=== PATIENT | female | born 1940 | race Caucasian/White ===

== ENCOUNTER 2018-02-06 21:55 | Emergency (ER) | payer OTHER, BC ==
--- NOTE | 2018-02-06 22:05 | PDOC ---
History of Present Illness - General History Source: Patient Exam Limitations: No Limitations <Mamadou Blanco I - Last Filed: 02/06/18 22:14> - General History Source: Patient Exam Limitations: No Limitations - History of Present Illness Initial Comments: 02/06/18 22:32 The patient is a 77 year old female, with a significant PMH of right breast cancer and hypercholesterolemia, who presents to the emergency department complaining of a cat bite that occurred this morning. The patient states her cat jumped on her bed around 3 am this morning and bit her left arm. The patient states left arm looked erythematous and swollen throughout the day, no relief with cipro. The patient reports her cat has never done this before. The patient denies any numbness and tingling. Denies any discharge or odor. PAST SURGICAL HISTORY: Right knee arthroscopy x2- 1980 FAMILY HISTORY: no pertinent history SOCIAL HISTORY: Former smoker (quit 1970s), drinks wine 1-2/day but denies recreational drug use. MEDICATIONS: reviewed ALLERGIES: As per nursing notes Adult ROS General: No fevers or chills, no weakness, no weight loss CardioVascular: No chest pain or shortness of breath Respiratory:No cough, or wheezing. Musculoskeletal: No joint or muscle pain or swelling Neurologic: No headache, vertigo, dizziness or loss of consciousness Psychiatric: nor depression Skin: +Scratches and erythema to the left arm Endocrine: no increased thirst or abnormal weight change Allergic: no skin or latex allergy All other systems reviewed and normal PE GENERAL: The patient is awake, alert, and fully oriented, in no acute distress. HEAD: Normal with no signs of trauma. EYES: Pupils equal, round and reactive to light, extraocular movements intact, sclera anicteric, conjunctiva clear. EXTREMITIES: Normal range of motion, no edema. NEUROLOGICAL: Normal speech, normal gait. PSYCH: Normal mood, normal affect. SKIN: +Several scratches to the dorsal left forearm. +Mild erythema & increase in warmth. <Paz Varghese - Last Filed: 02/06/18 22:34> - General Chief Complaint: Bite Stated Complaint: LA CAT BITE Time Seen by Provider: 02/06/18 21:57 Past History - Past Medical History Anemia: No Asthma: No Cancer: Yes (RIGHT BREAST) Cardiac Disorders: No CVA: No COPD: No CHF: No Dementia: No Diabetes: No GI Disorders: No Disorders: No HTN: No Hypercholesterolemia: Yes (ON LIPITOR) Liver Disease: No Seizures: No Thyroid Disease: No - Surgical History Abdominal Surgery: No Appendectomy: No Cardiac Surgery: No Cholecystectomy: No Lung Surgery: No Orthopedic Surgery: Yes (RIGHT KNEE ARTHROSCOPY X2 - AND 10/15) - Suicide/Smoking/Psychosocial Hx Smoking History: Former smoker Have you smoked in the past 12 months: No If you are a former smoker, when did you quit?: Hx Alcohol Use: Yes (1-2 WINE/DAY) Drug/Substance Use Hx: No Substance Use Type: Alcohol Hx Substance Use Treatment: No <Mamadou Blanco I - Last Filed: 02/06/18 22:14> <Paz Varghese - Last Filed: 02/06/18 22:34> - Past Medical History Allergies/Adverse Reactions: Allergies Allergy/AdvReac Type Severity Reaction Status Date / Time Sulfa (Sulfonamide Allergy Severe Swelling Verified 02/23/12 12:34 Antibiotics) [Sulfa(Sulfonamide Antibiotics)] Home Medications: Ambulatory Orders Atorvastatin Ca [Lipitor] 20 mg PO ASDIR 02/23/12 Amoxicillin/Potassium Clav [Augmentin 875-125 Tablet] 1 each PO BID #14 tablet 02/06/18 Arimidex - 02/06/18 Losartan Potassium 02/06/18 *Physical Exam - Vital Signs Last Vital Signs Temp Pulse Resp BP Pulse Ox 98.6 F 82 16 200/91 97 02/06/18 22:04 02/06/18 22:04 02/06/18 22:04 02/06/18 22:06 02/06/18 22:04 <Paz Varghese - Last Filed: 02/06/18 22:34> ED Treatment Course - Medications Given in the ED: ED Medications Discontinued Medications Generic Name Dose Route Start Last Admin Trade Name Freq PRN Reason Stop Dose Admin Amoxicillin/Clavulanate Potassium 1 tab 02/06/18 22:15 02/06/18 22:17 Augmentin - 875mg Tablet PO 02/06/18 22:16 1 tab ONCE ONE Administration <Paz Varghese - Last Filed: 02/06/18 22:34> *DC/Admit/Observation/Transfer - Discharge Dispostion Decision to Admit order: No <Mamadou Blanco I - Last Filed: 02/06/18 22:14> - Attestations Scribe Attestion: 02/06/18 22:34 Documentation prepared by Paz Varghese, acting as district medical examiner for Mamadou Blanco MD. <Paz Varghese - Last Filed: 02/06/18 22:34> Diagnosis at time of Disposition: Cat bite involving extremity - Discharge Dispostion Condition at time of disposition: Stable - Prescriptions Prescriptions: Amoxicillin/Potassium Clav [Augmentin 875-125 Tablet] 1 each PO BID #14 tablet - Referrals Referrals: Demarcus Toney [Primary Care Provider] - - Patient Instructions Printed Discharge Instructions: How to Care for a Domestic Animal Bite Additional Instructions: For the infection take Augmentin one tablet twice a day and is a strong dose of Augmentin so get a probiotic and some yogurt and make sure you take The probiotic as well as the yogurt to prevent diarrhea. The infection should be better in 48 hours. If it is worse in 24 hours or not better in 48 hours see her doctor or come back to the ER and she will need IV antibiotics Return to the emergency department immediately with ANY new, persistent or worsening symptoms. Continue any medications as previously prescribed by your physician. You should follow up with your primary doctor as soon as possible regarding today's emergency department visit. . Please make sure your doctor reviews the results of your emergency evaluation. Thank you for coming to the Emergency Department today for your care. It was a pleasure to see you today. Please note that your evaluation is INCOMPLETE until you follow-up with your doctor. - Post Discharge Activity
[2018-02-06 22:10] VITALS: BP 200/91; PULSE 82; TEMP 98.6; BMI 18.8
[2018-02-06] MEDS ORDERED: AMOX TR/POT CLAV 875MG/125MG TABLETS (FP) PO ONE (22:15)
[2018-02-06] MEDS ORDERED: AMOX TR/POT CLAV 875MG/125MG TABLETS (FP) ONE (22:16)
== END 2018-02-06 22:23 | disposition home or self-care (01) ==
LOC: FER 21:55
DX: S40.871A Other superficial bite of right upper arm, initial encounter (principal); W55.01XA Bitten by cat, initial encounter; Y93.84 Activity, sleeping; Y92.003 Bedroom of unspecified non-institutional (private) residence as the place of occurrence of the external cause; Z85.3 Personal history of malignant neoplasm of breast; E78.00 Pure hypercholesterolemia, unspecified
CPT/HCPCS: 99281-25

== ENCOUNTER 2018-02-08 15:55 | Emergency (ER) | payer OTHER, BC ==
--- NOTE | 2018-02-08 16:01 | PDOC ---
History of Present Illness - General Chief Complaint: Revisit,Wound Recheck Stated Complaint: WOUND CHECK FOR CAT BITE ON LEFT FOREARM Time Seen by Provider: 02/08/18 16:01 History Source: Patient Exam Limitations: No Limitations - History of Present Illness Initial Comments: Pt, with PMH of HTN, HLD, and R breast cancer, presents for a L forearm wound re -check after she was bitten by her cat early Thursday morning (02/06/2018). The pt came to the [place] ER the evening of 02/06, after she states that she "scared the cat and she woke up to the cat biting and scratching her arm". The pt was given 875 mg Augmentin BID x 7 days. The pt has been taking the antibiotics, but today she noticed there was white pustular discharge coming from the puncture site. While the pain and edema has improved, she noticed the pustular drainage and that the level of erythema has gone past the marker line she lavonne on her arm on Thursday. She denies fevers/chills, nausea/vomiting, SOB , syncope, abdominal pain, urinary symptoms, diarrhea/constipation, or other joint pain. 02/08/18 18:53 Past History - Travel Traveled outside of the country in the last 30 days: No Close contact w/someone who was outside of country & ill: No - Past Medical History Allergies/Adverse Reactions: Allergies Allergy/AdvReac Type Severity Reaction Status Date / Time Sulfa (Sulfonamide Allergy Severe Swelling Verified 02/08/18 15:57 Antibiotics) [Sulfa(Sulfonamide Antibiotics)] Home Medications: Ambulatory Orders Amoxicillin/Potassium Clav [Augmentin 875-125 Tablet] 1 each PO BID 02/08/18 Anastrozole [Arimidex -] 1 mg PO DAILY 02/08/18 Losartan Potassium 25 mg PO DAILY 02/08/18 Anemia: No Asthma: No Cancer: Yes (RIGHT BREAST) Cardiac Disorders: No CVA: No COPD: No CHF: No Dementia: No Diabetes: No GI Disorders: No Disorders: No HTN: No Hypercholesterolemia: Yes (ON LIPITOR) Liver Disease: No Seizures: No Thyroid Disease: No - Surgical History Abdominal Surgery: No Appendectomy: No Cardiac Surgery: No Cholecystectomy: No Lung Surgery: No Orthopedic Surgery: Yes (RIGHT KNEE ARTHROSCOPY X2 - AND 10/15) - Suicide/Smoking/Psychosocial Hx Smoking History: Former smoker Have you smoked in the past 12 months: No If you are a former smoker, when did you quit?: 1970'S Hx Alcohol Use: Yes (1-2 WINE/DAY) Drug/Substance Use Hx: No Substance Use Type: Alcohol Hx Substance Use Treatment: No Review of Systems - Review of Systems Able to Perform ROS?: Yes Is the patient limited Guatemalan proficient: No Constitutional: Yes: Weight Stable. No: Chills, Diaphoresis, Fever, Loss of Appetite HEENTM: No: Recent change in vision, Double Vision, Throat Pain, Throat Swelling , Difficulty Swallowing Respiratory: No: Cough, Orthopnea, Shortness of Breath Cardiac (ROS): No: Chest Pain, Edema, Irregular Heart Rate, Lightheadedness, Palpitations, Syncope, Chest Tightness ABD/GI: No: Abdominal Distended, Constipated, Diarrhea, Nausea, Poor Appetite, Poor Fluid Intake, Vomiting, Abdominal cramping : No: Burning, Dysuria, Frequency, Pain, Urgency Musculoskeletal: No: Back Pain, Joint Pain (no pain over affected forearm, elbow , or wrist.), Joint Swelling, Muscle Pain, Muscle Weakness Integumentary: Yes: Erythema (erythema of L forearm on dorsal and palmar side of forearm. erythema extends past original marker line. ). No: Bruising, Change in Color, Lesions, Lumps, Pruritus, Rash Neurological: No: Headache, Numbness, Paresthesia, Tingling, Weakness, Unsteady Gait, Ataxia, Dizziness Psychiatric: No: Sleep Pattern Change, Change in Appetite Endocrine: No: Increased Urine, Change in Weight Hematologic/Lymphatic: No: Anemia, Blood Clots, Easy Bleeding All Other Systems: Reviewed and Negative *Physical Exam - Physical Exam General Appearance: Yes: Nourished, Appropriately Dressed, Thin. No: Apparent Distress (Pt anxious. Erythema over L forearm. Vitals stable and pt can lie comfortably. ) HEENT: positive: EOMI, Normal ENT Inspection, Normal Voice, Symmetrical, Pharynx Normal, Hearing Grossly Normal. negative: Scleral Icterus (R), Scleral Icterus (L) Neck: positive: Trachea midline, Normal Thyroid, Supple. negative: Tender, Rigid, Lymphadenopathy (R), Lymphadenopathy (L) Respiratory/Chest: positive: Lungs Clear, Normal Breath Sounds. negative: Chest Tender, Respiratory Distress, Accessory Muscle Use, Wheezing Cardiovascular: positive: Regular Rhythm, Regular Rate, S1, S2. negative: Edema , JVD, Murmur Comments:: radial pulse +3 b/l 02/08/18 19:05 Gastrointestinal/Abdominal: positive: Normal Bowel Sounds, Flat, Soft. negative : Tender, Organomegaly, Pulsatile Mass, Guarding, Rebound, Tenderness Lymphatic: negative: Adenopathy, Tenderness Musculoskeletal: positive: Normal Inspection. negative: CVA Tenderness, Decreased Range of Motion, Muscle Spasm Extremity: positive: Normal Capillary Refill, Normal Range of Motion, Pelvis Stable, Erythema (erythema and warmth over L forearm with small area of white pustular drainage at puncture site. ). negative: Normal Inspection, Tender, Coldness, Cyanosis, Swelling Integumentary: positive: Dry, Warm, Erythema (erythema and warmth of L forearm on dorsal and palmar side of forearm. erythema extends past original marker line. ). negative: Normal Color, Clammy, Diaphoresis, Hives, Petechiae, Rash, Swelling, Ecchymosis, Bruising Neurologic: positive: insole filler II-XII NML intact, Fully Oriented, Alert, Normal Mood/ Affect, Normal Response, Motor Strength 5/5. negative: Numbness, Sensory Deficit (no numbness or tingling of affected arm. NVI. ) ED Treatment Course - LABORATORY CBC & Chemistry Diagram: 02/08/18 17:10 02/08/18 17:10 Medical Decision Making - Medical Decision Making Pt was seen at bedside. Also seen by Dr. Nance. Pt L forearm surrounding cat bite is warm and erythematous. Level of erythema is extending past prior line drawn with black marker. Pt refusing admission for inpatient antibiotics. Ordered CBC and CMP, and 1 dose 3 g IV unasyn and 1 g IV vancomycin. 02/08/18 16:24 Pt receiving antibiotics. CBC and CMP WNL. Will discharge to home with strict return precautions. Pt agreeable to plan. Will follow-up with PCP or return to ER if symptoms worsen. 02/08/18 18:52 *DC/Admit/Observation/Transfer Diagnosis at time of Disposition: Cat bite Qualifiers: Encounter type: subsequent encounter Qualified Code(s): W55.01XD - Bitten by cat, subsequent encounter - Discharge Dispostion Disposition: HOME Condition at time of disposition: Improved Decision to Admit order: No - Referrals Referrals: Demarcus Toney [Non Staff, Medical] - - Patient Instructions Printed Discharge Instructions: Animal Bites, DI for Wound Infection Additional Instructions: Continue taking her antibiotics as prescribed. Return for worsening redness fever increased amount of drainage from the wound or any concerns or signs of infection. He should return for repeat evaluation within 48 hours. He should also start to soak the arm in warm water twice daily to increase drainage and decreased infection. He can apply topical bacitracin over the wound or any antibiotic cream or labs are unremarkable today and normal. He was given a dose of IV antibiotics here in the emergency room - Post Discharge Activity
[2018-02-08 16:08] VITALS: BP 189/79; PULSE 78; TEMP 98.7; BMI 18.8
[2018-02-08] MEDS ORDERED: AMPICILLIN NA/SULBACTAM NA 3 GM in SODIUM CHLORIDE 100 ML IVPB ONE (16:22)
[2018-02-08] MEDS ORDERED: VANCOMYCIN 1,000 MG in DEXTROSE 5%-WATER - 250 ML IVPB ONE (16:36)
--- NOTE | 2018-02-08 17:07 | PDOC ---
Attending Attestation - Resident Resident Name: ArronGenevieve - ED Attending Attestation I have performed the following: I have examined & evaluated the patient, The case was reviewed & discussed with the resident, I agree w/resident's findings & plan, Exceptions are as noted - HPI HPI: 02/08/18 17:04 77-year-old female here for follow-up evaluation of a left forearm cat bite. Patient was started on Augmentin has been taking as prescribed overall feels that the swelling and redness has improved however she noted some yellow discharge coming from the puncture wound in her left forearm no fever no chills no pain no streaking no other current complaints - Physicial Exam PE: 02/08/18 17:05 Awake alert no acute distress cardiac exam is regular without any murmurs rubs or gallops abdomen is soft and nontender lungs are clear bilaterally. Skin: Left forearm is noted for mild E erythema and redness over the dorsum limited to the mid forearm distally to the wrist. No pain with passive range of motion of the hand or fingers no swelling appreciated no warmth there is a small 2 mm puncture wound on the dorsum of the forearm there is small purulence expressible no fluctuance and no induration surrounding distally the patient is neurovascularly intact with 2+ median and ulnar pulses - Medical Decision Making 02/08/18 17:06 Status post Bite left forearm. Overall improving with Augmentin and will give a dose of IV antibiotics here in same basic blood work to rule out signs of infection overall seems to be improving therefore likely DC home with antibiotics for close follow-up within 48 hours
[2018-02-08] MEDS ORDERED: AMPICILLIN NA/SULBACTAM NA 3 GM VIAL ONE ×2 (17:14→17:16)
[2018-02-08] MEDS ORDERED: VANCOMYCIN 1,000 MG VIAL (RESTRICTED TO ID ONLY) ONE (17:14)
[2018-02-08 18:21] LABS: ALBUMIN 4.1 g/dl (3.5-5.0); ALK PHOS 43 U/L (32-92); ANION GAP 8 (8-16); BILIRUBIN,TOTAL 0.8 mg/dl (0.2-1.0); BLOOD UREA NITROGEN 15 mg/dl (7-18); CALCIUM 9.8 mg/dl (8.4-10.2); CHLORIDE 102 mmol/L (98-107); CO2 27 mmol/L (22-28); CREATININE 0.7 mg/dl (0.6-1.3); GLUCOSE,RANDOM 94 mg/dl (74-106); POTASSIUM 3.6 mmol/L (3.5-5.1); SGOT/AST 25 U/L (10-42); SGPT/ALT 19 U/L (10-40); SODIUM 137 mmol/L (136-145); TOT PROT 6.8 g/dl (6.4-8.3)
[2018-02-08 18:24] LABS: HEMATOCRIT 37.6 % (32.4-45.2); HEMOGLOBIN 12.7 GM/dl (10.7-15.3); MCH 32.4 pg (25.7-33.7); MCHC 33.8 g/dl (32.0-36.0); MEAN CELL VOLUME 95.8 fl (80-96); MEAN PLT VOLUME 9.3 fl (7.5-11.1); PLATELET COUNT 225 K/MM3 (134-434); RBC 3.92 M/mm3 (3.60-5.2); RDW 12.6 % (11.6-15.6); WHITE BLOOD COUNT 6.5 K/mm3 (4.0-10.8)
== END 2018-02-08 19:29 | disposition home or self-care (01) ==
LOC: FER 15:55
DX: W55.01XD Bitten by cat, subsequent encounter (principal); Y93.9 Activity, unspecified
CPT/HCPCS: 36415; 80053; 85027; 99281-25

== ENCOUNTER 2018-12-18 21:21 | Emergency (ER) | payer OTHER, BC ==
[2018-12-18 21:43] VITALS: BP 158/90; PULSE 82; TEMP 98.2; BMI 19.5
[2018-12-18 22:11] LABS: EPITHELIAL CELLS FEW /hpf
--- NOTE | 2018-12-19 02:33 | PDOC ---
Documentation entered by Paz Varghese SCRIBE, acting as scribe for Maria Montes De Oca MD. Maria Montes De Oca MD: This documentation has been prepared by the mabeleAbimael Aiswarya, SCRIBE, under my direction and personally reviewed by me in its entirety. I confirm that the documentation accurately reflects all work, treatment, procedures, and medical decision making performed by me. History of Present Illness - General Chief Complaint: Pain Stated Complaint: RIGHT RIB PAIN Time Seen by Provider: 12/18/18 21:23 History Source: Patient Exam Limitations: No Limitations - History of Present Illness Initial Comments: 12/18/18 22:17 The patient is a 78 year old female, with a significant PMH of right breast cancer and HLD ( on lipitor) who presents to the emergency department for evaluation of rib pain that began last night. The patient states she went rock climbing yesterday when she twisted her body and felt a sudden onset of pain to the right upper rib cage. The patient state pain is exacerbated with movement or getting up and alleviated by lying down. The patient also mentions she had a UTI and was prescribed Cipro for 7 days but still endorses associated symptoms of urinary frequency, burning and discomfort. The patient also notes ecchymosis and mild pain to the tip of her right 3rd digit. She states she forgot her reading glasses and jammed her finger into a step. The patient denies chest pain, shortness of breath, headache and dizziness. Denies any back pain, numbness or tingling. Denies fever, chills, nausea, vomit, diarrhea and constipation.Denies dysuria and hematuria. Allergies: NKDA Past surgical history:Right knee arthroscopy x2 1979 and 10/15 Social history: Former smoker (quit in ) drinks 1-2 glasses of wine per day but denies use of recreational drug PCP: Demarcus Toney Past History - Past Medical History Allergies/Adverse Reactions: Allergies Allergy/AdvReac Type Severity Reaction Status Date / Time Sulfa (Sulfonamide Allergy Severe Swelling Verified 12/18/18 21:33 Antibiotics) [Sulfa(Sulfonamide Antibiotics)] Home Medications: Ambulatory Orders Anastrozole [Arimidex -] 1 mg PO DAILY 02/08/18 Losartan Potassium 25 mg PO DAILY 02/08/18 Atorvastatin Ca [Lipitor] 20 mg PO DAILY 12/18/18 Ciprofloxacin [Cipro (Restricted To Id)] 500 mg PO DAILY 12/18/18 Anemia: No Asthma: No Cancer: Yes (RIGHT BREAST) Cardiac Disorders: No CVA: No COPD: No CHF: No Dementia: No Diabetes: No GI Disorders: No Disorders: No HTN: No Hypercholesterolemia: Yes (ON LIPITOR) Liver Disease: No Seizures: No Thyroid Disease: No - Surgical History Abdominal Surgery: No Appendectomy: No Cardiac Surgery: No Cholecystectomy: No Lung Surgery: No Orthopedic Surgery: Yes (RIGHT KNEE ARTHROSCOPY X2 - AND 10/15) - Suicide/Smoking/Psychosocial Hx Smoking History: Former smoker Have you smoked in the past 12 months: No If you are a former smoker, when did you quit?: Hx Alcohol Use: Yes (1-2 WINE/DAY) Drug/Substance Use Hx: No Substance Use Type: Alcohol Hx Substance Use Treatment: No Review of Systems - Review of Systems Able to Perform ROS?: Yes Comments:: 12/18/18 22:17 GENERAL/CONSTITUTIONAL: No fever or chills. No weakness. HEAD, EYES, EARS, NOSE AND THROAT: No change in vision. No ear pain or discharge. No sore throat. CARDIOVASCULAR: No chest pain or shortness of breath. RESPIRATORY: No cough, wheezing, or hemoptysis. GASTROINTESTINAL: No nausea, vomiting, diarrhea or constipation. GENITOURINARY: No dysuria, frequency, or change in urination. MUSCULOSKELETAL: +posterior right side rib pain . SKIN: +right middle finger ecchymosis NEUROLOGIC: No headache, vertigo, loss of consciousness, or change in strength/ sensation. ENDOCRINE: No increased thirst. No abnormal weight change. HEMATOLOGIC/LYMPHATIC: No anemia, easy bleeding, or history of blood clots. ALLERGIC/IMMUNOLOGIC: No hives or skin allergy. *Physical Exam - Vital Signs Last Vital Signs Temp Pulse Resp BP Pulse Ox 98.2 F 82 16 158/90 97 12/18/18 21:22 12/18/18 21:22 12/18/18 21:22 12/18/18 21:22 12/18/18 21:22 - Physical Exam Comments: 12/18/18 22:18 GENERAL: Awake, alert, and fully oriented, in no acute distress HEAD: No signs of trauma NECK: Normal ROM, supple, no lymphadenopathy, JVD, or masses LUNGS: Breath sounds equal, clear to auscultation bilaterally. No wheezes, and no crackles CHEST WALL: +tenderness on palpation of the 4/5 rib in the posterior axillary line. No crepitus, step off or any other tenderness palpated. HEART: Regular rate and rhythm, normal S1 and S2, no murmurs, rubs or gallops ABDOMEN: Soft, nontender, normoactive bowel sounds. No guarding, no rebound. No masses EXTREMITIES: +moderately edematous ecchymosis distal to the phalanx of the middle finger. Mild generalized tenderness. Flexion and extension of the DIP joint. No deformity. NEUROLOGICAL: Cranial nerves II through XII grossly intact. Normal speech. SKIN: Warm, Dry, normal turgor, no rashes or lesions noted. ED Treatment Course - ADDITIONAL ORDERS Additional order review: Laboratory Results 12/18/18 21:45 Urine Color Yellow Urine Appearance Clear Urine pH 5.0 Urine Protein Negative Urine Glucose (UA) Negative Urine Ketones Trace Urine Blood Negative Urine Nitrite Negative Urine Bilirubin Negative Urine Urobilinogen 0.2 Ur Leukocyte Esterase Trace H Urine RBC No Result Required. Urine WBC 2-5 Ur Transition Epith Cell Few - RADIOLOGY Radiology Studies Ordered: Category Date Time Status FINGER(S) RIGHT [RAD] Stat Radiology 12/18/18 21:59 Ordered RIBS RIGHT SIDE [RAD] Stat Radiology 12/18/18 22:01 Ordered Medical Decision Making - Medical Decision Making As noted above, this 78-year-old woman presents with a history of right chest wall pain for the last day. Patient was climbing a rock wall when she first felt pain; this occurred immediately after she twisted her torso. She strongly denies falling or impacting the area. Pain is worsened with movement and deep breathing. She denies shortness of breath or cough. She also has a nontender/ nonpainful, ecchymotic distal right third finger which she injured yesterday when she accidentally impacted finger against a step. She has no new limitation of flexion or extension in the DIP joint of that finger. Finally, the patient also has very mild persistent dysuria after 1 week course of antibiotics for UTI. Exam is noted. Right rib series/right third finger and urinalysis ordered. Preliminary x-ray interpretation by me: Rib series- No evidence of fracture dislocation of rib. 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 Microscopic exam reveals 0-2 WBCs and 1+ epi, otherwise normal Results discussed with the patient. Because she has persistent mild symptoms, urine culture and sensitivity will be sent to evaluate for UTI Patient should follow-up with her orthopedic group ( group) if she has persistent pain/bruising/swelling in the right third finger She should return to the ER if she has severe chest pain/cough/shortness of breath/fever, otherwise she should follow-up with her general medical doctor within the next 5-7 days *DC/Admit/Observation/Transfer Diagnosis at time of Disposition: Dysuria Chest wall muscle strain Qualifiers: Encounter type: initial encounter Qualified Code(s): S29.011A - Strain of muscle and tendon of front wall of thorax, initial encounter Finger contusion Qualifiers: Encounter type: initial encounter Finger: middle finger Damage to nail status: without damage Laterality: right Qualified Code(s): S60.031A - Contusion of right middle finger without damage to nail, initial encounter - Discharge Dispostion Disposition: HOME Condition at time of disposition: Stable - Referrals Referrals: Demarcus Toney [Primary Care Provider] - - Patient Instructions Printed Discharge Instructions: DI for Rib Contusion Additional Instructions: Avoid strenuous upper body activity for the next week Ibuprofen/naproxen/acetaminophen as needed for pain Continue to drink plenty of water Follow-up with /Dr. Rogers if swelling/bruising of finger persists Follow-up with your general doctor within the next 5-7 days, especially if you continue to have bladder discomfort - Post Discharge Activity
== END 2018-12-18 22:55 | disposition home or self-care (01) ==
LOC: FER 21:21
DX: S60.031A Contusion of right middle finger without damage to nail, initial encounter (principal); R30.0 Dysuria; S29.011A Strain of muscle and tendon of front wall of thorax, initial encounter; X58.XXXA Exposure to other specified factors, initial encounter; Y93.89 Activity, other specified; Y92.89 Other specified places as the place of occurrence of the external cause
CPT/HCPCS: 71101-TC-RT-FY; 73140-TC-RT-FY; 81003; 81015; 87086; 99283-25

== ENCOUNTER 2019-08-01 16:24 | Emergency (ER) | payer OTHER, BC ==
[2019-08-01 16:37] VITALS: BP 162/84; PULSE 84; TEMP 98.1; BMI 18.0
[2019-08-01 17:38] LABS: BASO % 0.5 % (0-2.0); EOS % 1.3 % (0-4.5); HEMATOCRIT 34.2 % (32.4-45.2); HEMOGLOBIN 11.7 GM/dl (10.7-15.3); LYMPH % 22.8 % (8-40); MCH 32.4 pg (25.7-33.7); MCHC 34.3 g/dl (32.0-36.0); MEAN CELL VOLUME 94.7 fl (80-96); MEAN PLT VOLUME 8.1 fl (7.5-11.1); MONO % 8.4 % (3.8-10.2); PLATELET COUNT 219 K/MM3 (134-434); RBC 3.61 M/mm3 (3.60-5.2); RDW 12.9 % (11.6-15.6); WHITE BLOOD COUNT 5.9 K/mm3 (4.0-10.8)
[2019-08-01 17:51] LABS: ALBUMIN 3.9 g/dl (3.4-5.0); BILIRUBIN,TOTAL 0.6 mg/dl (0.2-1); CALCIUM 9.3 mg/dl (8.5-10); CREATININE 0.7 mg/dl (0.55-1.3); TOT PROT 6.2 g/dl (6.4-8.2)
[2019-08-01 17:58] LABS: EPITHELIAL CELLS RARE /hpf
[2019-08-01] MEDS ORDERED: ACETAMINOPHEN 1000 MG/100 ML VIAL (NON FORMULARY) IVPB ONE (18:02)
[2019-08-01] MEDS ORDERED: PHENAZOPYRIDINE HCL 100 MG TABLET (FP) PO ONE (18:02)
[2019-08-01] MEDS ORDERED: ACETAMINOPHEN INJECTION 100 ML IVPB ONE (18:04)
[2019-08-01] MEDS ORDERED: PHENAZOPYRIDINE HCL 100 MG TABLET (FP) ONE (18:04)
[2019-08-01] MEDS ORDERED: CEFTRIAXONE 1 GM in DEXTROSE 5%-WATER - 50 ML IVPB ONE (18:16)
[2019-08-01] MEDS ORDERED: oxyCODONE HCL 5 MG TABLET PO ONE (18:16)
[2019-08-01] MEDS ORDERED: oxyCODONE HCL 5 MG TABLET ONE (18:21)
[2019-08-01] MEDS ORDERED: cefTRIAXone SODIUM 1 GM VIAL ONE (18:21)
--- NOTE | 2019-08-01 19:04 | PDOC ---
Documentation entered by Radha Alberto SCRIBE, acting as scribe for Agustín Medel MD. Agustín Medel MD: This documentation has been prepared by the Dolly vargas Nirvannie, SCRIBE, under my direction and personally reviewed by me in its entirety. I confirm that the documentation accurately reflects all work, treatment, procedures, and medical decision making performed by me. History of Present Illness - General Chief Complaint: Pain Stated Complaint: LLQ PAIN and ANXIETY ATTACK Time Seen by Provider: 08/01/19 16:34 History Source: Patient Exam Limitations: No Limitations - History of Present Illness Initial Comments: 08/01/19 18:58 The patient is a 78 year old female, with a significant past medical history of right breast cancer (s/p radiation 12), anxiety, and hld, who presents to the emergency department with 1 day of acute on chronic left suprapubic pain. As per patient, she had been worked up for the past 7 months by a multitude of physicians for left pelvic, suprapubic pain including x-rays, MRIs, and CT scans. She describes her pain as a dull, achy pain that progressively worsened to a sharp, stabbing pain normally occurring at 5pm at night but, today occurred upon awakening. She notes associated urinary hesitancy and dysuria at the end of her stream which has been occurring for the past 7 months. She endorses taking Pyridium, without relief prompting her arrival to the ED. While in the ED, patient endorses she is increasingly anxious secondary to pain. She denies recent fevers, chills, headache or dizziness. She denies recent nausea, vomiting, diarrhea or constipation. She denies recent chest pain or shortness of breath. Allergies: Sulfa Past surgical history: Right knee arthroscopy x2 1979 and 10/15 Social history: Former smoker (quit in ) drinks 1-2 glasses of wine per day but denies use of recreational drug usage. Primary Care Physician: Demarcus Feldman Past History - Past Medical History Allergies/Adverse Reactions: Allergies Allergy/AdvReac Type Severity Reaction Status Date / Time Sulfa (Sulfonamide Allergy Severe Swelling Verified 08/01/19 16:26 Antibiotics) [Sulfa(Sulfonamide Antibiotics)] Home Medications: Ambulatory Orders Losartan Potassium 25 mg PO BID 02/08/18 Atorvastatin Ca [Lipitor] 20 mg PO DAILY 12/18/18 Cyclobenzaprine HCl [Flexeril -] 5 mg PO TID 08/01/19 Diazepam [Valium] 5 mg PO PRN PRN 08/01/19 Eszopiclone [Lunesta] 53 mg PO PRN PRN 08/01/19 Nortriptyline HCl [Pamelor -] 25 mg PO DAILY 08/01/19 Oxybutynin Chloride [Oxybutynin Chloride ER] 5 mg PO DAILY 08/01/19 Oxycodone HCl/Acetaminophen [Oxycodone-Acetaminophen 5-325] 1 tab PO PRN PRN Anemia: No Asthma: No Cancer: Yes (RIGHT BREAST) Cardiac Disorders: No CVA: No COPD: No CHF: No Dementia: No Diabetes: No GI Disorders: No Disorders: No HTN: Yes Hypercholesterolemia: Yes (ON LIPITOR) Liver Disease: No Seizures: No Thyroid Disease: No - Surgical History Abdominal Surgery: No Appendectomy: No Cardiac Surgery: No Cholecystectomy: No Lung Surgery: No Orthopedic Surgery: Yes (RIGHT KNEE ARTHROSCOPY X2 - AND 10/15) - Psycho Social/Smoking Cessation Hx Smoking History: Former smoker Have you smoked in the past 12 months: No If you are a former smoker, when did you quit?: Information on smoking cessation initiated: No Hx Alcohol Use: Yes (1-2 WINE/DAY) Drug/Substance Use Hx: No Substance Use Type: Alcohol Hx Substance Use Treatment: No Review of Systems - Review of Systems Able to Perform ROS?: Yes Comments:: 08/01/19 18:58 CONSTITUTIONAL: No reported: Fever, Chills, Diaphoresis, Generalized Weakness, Malaise, Loss of Appetite HEENT: No reported: Rhinorrhea, Nasal Congestion, Throat Pain, Throat Swelling, Difficulty Swallowing, Mouth Swelling, Ear Pain, Eye Pain, Visual Changes CARDIOVASCULAR: No reported: Chest Pain, Syncope, Palpitations, Irregular Heart Rate, Lightheadedness, Peripheral Edema RESPIRATORY: No reported: Cough, Shortness of Breath, SOB with Exertion, Orthopnea, Wheezing , Stridor, Hemoptysis GASTROINTESTINAL: No reported: Abdominal Distension, Nausea, Vomiting, Diarrhea, Constipation, Melena, Hematochezia GENITOURINARY: Present: Right suprapubic pain, hesitancy, dysuria. No reported: Frequency, Urgency, Flank Pain MUSCULOSKELETAL: No reported: Myalgia, Arthralgia, Joint Swelling, Back pain, Neck Pain SKIN: No reported: Rash, Itching, Pallor HEMEATOLOGIC/IMMUNOLOGIC: No reported: Easy Bleeding, Easy Bruising, Lymphadenopathy, Frequent infections ENDOCRINE: No reported: Unexplained Weight Gain, Unexplained Weight Loss, Heat Intolerance , Cold Intolerance NEUROLOGIC: No reported: Headache, Focal Weakness, Paresthesias, Vertigo, Lightheadedness, Unsteady Gait, Seizure, Mental Status Changes, Incontinence PSYCHIATRIC: No reported: Anxiety, Depression All Other Systems: Reviewed and Negative *Physical Exam - Vital Signs Last Vital Signs Temp Pulse Resp BP Pulse Ox 98.1 F 84 18 162/84 98 08/01/19 16:25 08/01/19 16:25 08/01/19 16:25 08/01/19 16:25 08/01/19 16:25 - Physical Exam 08/01/19 18:18 GENERAL: The patient is awake, alert, and fully oriented, uncomfortable appearing HEAD: Normocephalic, atraumatic. EYES: extraocular movements intact, sclera anicteric, conjunctiva clear. ENT: Normal voice, Moist mucous membranes. NECK: Normal range of motion, supple LUNGS: Breath sounds equal, clear to auscultation bilaterally. No wheezes, no rhonchi, no rales. HEART: Regular rate and rhythm, normal S1 and S2 without murmur, rub or gallop. ABDOMEN: moderate suprapubic tenderness, no rebound/guarding, no cva tenderness EXTREMITIES: Normal range of motion, no edema. NEUROLOGICAL: No facial assymetry, Normal speech, PSYCH: Normal mood, normal affect. SKIN: Warm, Dry, normal turgor, ED Treatment Course - LABORATORY CBC & Chemistry Diagram: 08/01/19 17:15 08/01/19 17:15 - ADDITIONAL ORDERS Additional order review: Laboratory Results 08/01/19 08/01/19 17:15 17:15 Sodium 138 Potassium 4.0 Chloride 105 Carbon Dioxide 27 Anion Gap 6 L BUN 22.0 H Creatinine 0.7 Est GFR (CKD-EPI)AfAm 96.86 Est GFR (CKD-EPI)NonAf 83.57 Random Glucose 90 Calcium 9.3 Total Bilirubin 0.6 AST 21 ALT 24 Alkaline Phosphatase 40 L Total Protein 6.2 L Albumin 3.9 Urine Color Yellow Urine Appearance Clear Urine pH 5.0 Urine Protein Negative Urine Glucose (UA) Negative Urine Ketones Trace Urine Blood Negative Urine Nitrite Positive H Urine Bilirubin Negative Urine Urobilinogen 0.2 Ur Leukocyte Esterase 2+ Urine RBC 0-2 Urine WBC 40-60 Ur Transition Epith Cell Rare Urine Bacteria Moderate 08/01/19 17:15 RBC 3.61 MCV 94.7 MCHC 34.3 RDW 12.9 MPV 8.1 Neutrophils % 67.0 Lymphocytes % 22.8 Monocytes % 8.4 Eosinophils % 1.3 Basophils % 0.5 Medical Decision Making - Medical Decision Making 08/01/19 17:59 78y F hx of breast ca sp radiation therapy, perihpheral neuropathy presents with several months of intermittent LLQ pain around 5pm that gradually worsens. Pt has had multiple imaging modalities and specialist visits without an clear etiology. Pt notes the pain is deep aching pain sharp pain that usually worsens in the evenings around 5pm, but today, the pain was present since she woke up and has been worsening since around 1pm. deneis any vaginal bleednig/discharge , urinary or bowel incontinence, dysparunia. On exam the patient's abdomen is soft nontender there is mild suprapubic pain. There is no CVA tenderness rebound or guarding. Differential for the patient's symptoms includes possible UTI, cystitis, consider worsening of her chronic pain. Will obtain blood work, urine, will reassess 08/01/19 18:43 The patient's UA is noted for nitrite positive urine consistent with UTI. Patient has no cultures on file, will treat the patient with ceftriaxone/Keflex Patient is feeling better requesting to go home We will have the patient follow-up with her PMD, return precautions were discussed Discharge - Discharge Information Problems reviewed: Yes Clinical Impression/Diagnosis: Urinary tract infection Qualifiers: Urinary tract infection type: acute cystitis Hematuria presence: without hematuria Qualified Code(s): N30.00 - Acute cystitis without hematuria Condition: Fair Disposition: HOME - Admission No - Follow up/Referral Referrals: Demarcus Toney [Primary Care Provider] - - Patient Discharge Instructions Patient Printed Discharge Instructions: DI for Urinary Tract Infection (UTI) Additional Instructions: Return to the emergency department immediately with ANY new, persistent or worsening symptoms including worsening abdominal pain, fevers, inability to tolerate oral intake, chest pain, shortness of breath or any other concerns. Stay well hydrated. You MUST call and follow up with your doctor tomorrow. Your emergency department visit is not complete without a followup with your doctor for reevaluation. Please make sure your doctor reviews the results of your emergency evaluation. Print Language: HUNGARIAN - Post Discharge Activity
== END 2019-08-01 19:14 | disposition home or self-care (01) ==
LOC: FER 16:24 → SUPCPDRO 16:24 → FER 19:14
PROC: 3E033NZ Introduction of Analgesics, Hypnotics, Sedatives into Peripheral Vein, Percutaneous Approach (ICD-10-PCS; principal; 2019-08-01)
PROC: 3E03329 Introduction of Other Anti-infective into Peripheral Vein, Percutaneous Approach (ICD-10-PCS; 2019-08-01)
DX: N30.00 Acute cystitis without hematuria (principal); Z88.2 Allergy status to sulfonamides; Z85.3 Personal history of malignant neoplasm of breast; G62.9 Polyneuropathy, unspecified
CPT/HCPCS: 36415; 80053; 81003; 81015; 85025; 87086; 87186; 99283-25; J0131

== ENCOUNTER 2020-11-12 08:27 | Emergency (ER) | payer OTHER ==
[2020-11-12 08:48] VITALS: BP 144/83; PULSE 89; TEMP 98.1; BMI 19.2
[2020-11-12] MEDS ORDERED: CEPHALEXIN MONOHYDRATE 500 MG CAPSULE (UD) PO ONE (08:57)
[2020-11-12] MEDS ORDERED: PHENAZOPYRIDINE HCL 100 MG TABLET (FP) PO ONE (08:59)
[2020-11-12] MEDS ORDERED: PHENAZOPYRIDINE HCL 100 MG TABLET (FP) ONE (09:01)
[2020-11-12] MEDS ORDERED: CEPHALEXIN MONOHYDRATE 500 MG CAPSULE (UD) ONE (09:02)
[2020-11-12 09:06] LABS: EPITHELIAL CELLS FEW /hpf
== END 2020-11-12 09:09 | disposition home or self-care (01) ==
LOC: FER 08:27
DX: N30.00 Acute cystitis without hematuria (principal)
CPT/HCPCS: 81003; 81015; 87086; 87186; 99284-25

== ENCOUNTER 2021-11-15 13:43 | Emergency (ER) | payer OTHER ==
[2021-11-15 14:01] VITALS: BP 157/71; PULSE 83; TEMP 98.2; BMI 19.7
== END 2021-11-15 14:49 | disposition home or self-care (01) ==
LOC: FER 13:43
DX: S00.06XA Insect bite (nonvenomous) of scalp, initial encounter (principal); W57.XXXA Bitten or stung by nonvenomous insect and other nonvenomous arthropods, initial encounter
CPT/HCPCS: 36415; 86618; 99283-25

== ENCOUNTER 2022-08-03 15:27 | Emergency (ER) | payer OTHER ==
[2022-08-03 15:39] VITALS: BP 132/77; PULSE 70; RESP 20; TEMP 98; BMI 21.4
== END 2022-08-03 17:13 | disposition home or self-care (01) ==
LOC: FER 15:27
DX: R07.81 Pleurodynia (principal)
CPT/HCPCS: 71101-TC-RT-FY; 99283-25

== ENCOUNTER 2023-03-07 14:14 | Emergency (ER) | payer OTHER ==
[2023-03-07 14:44] VITALS: BP 139/83; PULSE 84; RESP 15; TEMP 98.7; BMI 19.2
== END 2023-03-07 17:22 | disposition home or self-care (01) ==
LOC: FER 14:14
DX: S00.03XA Contusion of scalp, initial encounter (principal); S05.12XA Contusion of eyeball and orbital tissues, left eye, initial encounter; W01.0XXA Fall on same level from slipping, tripping and stumbling without subsequent striking against object, initial encounter
CPT/HCPCS: 70450-TC; 99284-25

== ENCOUNTER 2023-12-25 11:28 | Emergency (ER) | payer OTHER ==
[2023-12-25] MEDS ORDERED: DIPHTH,PERTUSS(ACELL),TET 0.5 ML DISP.SYRIN IM ONE (11:46)
[2023-12-25 11:57] VITALS: BP 144/90; PULSE 82; RESP 16; TEMP 98.2; BMI 19.2
[2023-12-25] MEDS ORDERED: ACETAMINOPHEN 500 MG TABLET (FP) ONE (12:30)
[2023-12-25] MEDS: ACETAMINOPHEN 500 MG TABLET (FP) PO ONE (12:36)
== END 2023-12-25 18:13 | disposition home or self-care (01) ==
LOC: FER 11:28
DX: S80.212A Abrasion, left knee, initial encounter (principal); S00.03XA Contusion of scalp, initial encounter; W01.198A Fall on same level from slipping, tripping and stumbling with subsequent striking against other object, initial encounter; Y93.01 Activity, walking, marching and hiking
CPT/HCPCS: 70450-TC; 70486-TC; 72125-TC; 72141-TC; 73130-TC-LT-FY; 73140-TC-LT-FY; 99284-25

== ENCOUNTER 2024-12-03 16:08 | Emergency (ER) | payer OTHER ==
[2024-12-03 16:27] VITALS: BP 161/101; PULSE 71; RESP 20; TEMP 98.2; BMI 22.1
[2024-12-03] MEDS: DIPHTH,PERTUSS(ACELL),TET 0.5 ML DISP.SYRIN IM ONE (17:18)
[2024-12-03] MEDS ORDERED: ACETAMINOPHEN 325 MG TABLET (FP) PO ONE (17:31)
[2024-12-03] MEDS ORDERED: ACETAMINOPHEN 325 MG TABLET (FP) ONE (17:33)
== END 2024-12-03 17:59 | disposition home or self-care (01) ==
LOC: FER 16:08
DX: S80.12XA Contusion of left lower leg, initial encounter (principal); Y08.09XA Assault by strike by other specified type of sport equipment, initial encounter
CPT/HCPCS: 73590-TC-RT-FY; 99283-25